=== PATIENT | male | born 1960 | race American Indian/Alaskan Native ===

== ENCOUNTER 2017-02-11 01:06 | Inpatient (IN) | payer OTHER ==
[2017-02-11] MEDS ORDERED: NITROSTAT SL PRN (01:37)
[2017-02-11] MEDS ORDERED: ASPIRIN PO ONE (01:38)
[2017-02-11] MEDS ORDERED: NITROSTAT SL ONE (01:42)
[2017-02-11 01:49] LABS: Basophils % (Auto) 0.3 % (0.0-1.8); Eosinophils % (Auto) 0.8 % (0.0-4.3); Hemoglobin 13.8 gm/dl (11.8-15.2); Mean Corpuscular HGB Conc 33 % (32-34); Mean Corpuscular Hemoglobin 26 pg (28-32); Mean Corpuscular Volume 80 fl (84-94); Platelet Count 243 K/mm3 (140-440); Red Blood Count 5.25 M/mm3 (3.65-5.03); Red Cell Distribution Width 18.6 % (13.2-15.2); White Blood Count 11.8 K/mm3 (4.5-11.0)
[2017-02-11 02:08] LABS: Anion Gap 17 mmol/L; BUN/Creatinine Ratio 13; Blood Urea Nitrogen 18 mg/dL (9-20); Calcium 8.9 mg/dL (8.4-10.2); Carbon Dioxide 28 mmol/L (22-30); Chloride 98.4 mmol/L (98-107); Glucose 179 mg/dL (75-100); Potassium 4.5 mmol/L (3.6-5.0); Sodium 139 mmol/L (137-145)
[2017-02-11] MEDS ORDERED: NACL 0.9% 1000 ML 1,000 ML IV ONE (02:38)
--- NOTE | 2017-02-11 02:56 | XRay Report ---
FINAL REPORT PROCEDURE: XR CHEST 1V AP TECHNIQUE: Chest radiograph anteroposterior view. CPT 03990 HISTORY: chest pain COMPARISON: No prior studies are available for comparison. FINDINGS: Heart: The heart is borderline enlarged. Mediastinum/Vessels: Normal. Lungs/Pleural space: Lungs are clear and expanded. There are no infiltrates, effusions or pneumothoraces per. Bony thorax: No acute osseous abnormality. Life support devices: None. IMPRESSION: There is borderline cardiomegaly. There are no infiltrates..
--- NOTE | 2017-02-11 02:57 | Emergency Department Report ---
ED Chest Pain HPI - General Chief Complaint: Chest Pain Stated Complaint: CP Time Seen by Provider: 02/11/17 02:33 Source: patient Mode of arrival: Stretcher Limitations: No Limitations - History of Present Illness Initial Comments: 56 YO MALE WITH H/O CHF, RLE DVT ,HTN, HER WITH C/O CHEST PAIN THAT BEGAN 6 HRS AGO. THE PAIN IS INTERMITTENT ACCOMPAINED BY NAUSEA. IT IS STABBING IN NATURE AND DOES NOT RADIATE. MD Complaint: chest pain -: hour(s) (6) Onset: during rest Severity scale (0 -10): 2 Quality: sharp Consistency: intermittent Improves With: nothing Worsens With: nothing re: nausea Treatments Prior to Arrival: none - Related Data Home Medications Medication Instructions Recorded Confirmed Last Taken Metoprolol [Lopressor TAB] 25 mg PO BID 02/11/17 02/11/17 Unknown Torsemide [Demadex] 20 mg PO BID 02/11/17 02/11/17 Unknown Warfarin [Coumadin] 7.5 mg PO DAILY@1700 02/11/17 02/11/17 Unknown Previous Rx's Medication Instructions Recorded Last Taken Type Folic Acid [Folvite] 1 mg PO DAILY #30 tablet 09/22/16 Unknown Rx Potassium Chloride [K-Dur] 20 meq PO BID #30 tablet 09/22/16 Unknown Rx Allergies Allergy/AdvReac Type Severity Reaction Status Date / Time No Known Allergies Allergy Unverified 09/12/16 09:03 Heart Score - HEART Score History: Moderately suspicious EKG: Non-specific Age: 45-65 Risk factors: > 3 risk factors or hx of atherosclerotic disease Troponin: < normal limit HEART Score: 5 ED Review of Systems ROS: Stated complaint: CP Other details as noted in HPI Constitutional: denies: chills, fever Eyes: denies: eye pain, eye discharge, vision change ENT: denies: ear pain, throat pain Respiratory: shortness of breath. denies: cough, wheezing Cardiovascular: chest pain. denies: palpitations Endocrine: no symptoms reported Gastrointestinal: nausea. denies: abdominal pain, diarrhea Genitourinary: denies: urgency, dysuria Musculoskeletal: denies: back pain, joint swelling, arthralgia Skin: denies: rash, lesions Neurological: denies: headache, weakness, paresthesias Psychiatric: denies: anxiety, depression Hematological/Lymphatic: denies: easy bleeding, easy bruising ED Past Medical Hx - Past Medical History Previous Medical History?: Yes Hx Hypertension: Yes Hx Heart Attack/AMI: Yes Hx Congestive Heart Failure: Yes Hx Diabetes: No Hx Deep Vein Thrombosis: Yes Hx Asthma: No Hx COPD: No - Surgical History Past Surgical History?: No - Social History Smoking Status: Current Every Day Smoker Substance Use Type: None - Medications Home Medications: Home Medications Medication Instructions Recorded Confirmed Last Taken Type Folic Acid [Folvite] 1 mg PO DAILY #30 tablet 09/22/16 02/11/17 Unknown Rx Potassium Chloride [K-Dur] 20 meq PO BID #30 tablet 09/22/16 02/11/17 Unknown Rx Metoprolol [Lopressor TAB] 25 mg PO BID 02/11/17 02/11/17 Unknown History Torsemide [Demadex] 20 mg PO BID 02/11/17 02/11/17 Unknown History Warfarin [Coumadin] 7.5 mg PO DAILY@1700 02/11/17 02/11/17 Unknown History ED Physical Exam - General Limitations: No Limitations General appearance: alert, in no apparent distress - Head Head exam: Present: atraumatic, normocephalic - Eye Eye exam: Present: normal appearance, EOMI - ENT ENT exam: Present: mucous membranes moist - Neck Neck exam: Present: normal inspection - Respiratory Respiratory exam: Present: normal lung sounds bilaterally. Absent: respiratory distress - Cardiovascular Cardiovascular Exam: Present: regular rate, normal rhythm, systolic murmur. Absent: diastolic murmur, rubs, gallop - GI/Abdominal GI/Abdominal exam: Present: soft, normal bowel sounds - Rectal Rectal exam: Present: deferred - Extremities Exam Extremities exam: Present: normal inspection, pedal edema (4+ PITTING EDEMA) - Back Exam Back exam: Present: normal inspection, full ROM - Neurological Exam Neurological exam: Present: alert, oriented X3, CN II-XII intact - Psychiatric Psychiatric exam: Present: normal affect, normal mood - Skin Skin exam: Present: warm, dry, intact, normal color. Absent: rash ED Course Vital Signs 02/11/17 02/11/17 01:12 02:00 Temperature 97.7 F Pulse Rate 68 Respiratory 16 16 Rate Blood Pressure 115/81 Blood Pressure 115/81 [Right] O2 Sat by Pulse 100 100 Oximetry MARY score - Mary Score Age > 65: (0) No Aspirin use within the Past 7 Days: (1) Yes 3 or more CAD Risk Factors: (1) Yes 2 or more Angina events in past 24 hrs: (1) Yes Known CAD with more than 50% Stenosis: (0) No Elevated Cardiac Markers: (1) Yes ST Deviation Greater than 0.5mm: (1) Yes MARY Score: 5 ED Medical Decision Making - Lab Data Result diagrams: 02/11/17 01:31 02/11/17 01:31 - EKG Data -: EKG Interpreted by Me - EKG Data Interpretation: other (HR 67, ATRIAL FLUTTER, NORMAL AXIS,LOW VOLTAHE IN LIMB LEADS) 02/11/17 05:55 EKG#2:HR 71, NON, NO LONGER A-FIB SPECIFIC T WAVE CHANGES - Radiology Data Radiology results: report reviewed (CXR: BORDERLINE CARDIOMEGALY) Critical care attestation.: If time is entered above; I have spent that time in minutes in the direct care of this critically ill patient, excluding procedure time. ED Disposition Clinical Impression: Chest pain CHF (congestive heart failure) Qualifiers: Congestive heart failure type: unspecified congestive heart failure type Congestive heart failure chronicity: acute Qualified Code(s): I50.9 - Heart failure, unspecified Disposition: DC-09 OP ADMIT IP TO THIS HOSP Is pt being admited?: Yes Does the pt Need Aspirin: No Condition: Serious Instructions: Chest Pain (ED) Referrals: CAMERON PARKER MD [Primary Care Provider] - 3-5 Days Time of Disposition: 06:03 (DR HOUSER PAGES AND CASE REVIEWED AND SHE WILL ADMIT HIM TO HER SERVICE)
[2017-02-11 04:02] LABS: Creatine Kinase MB 2.9 ng/mL (0.0-4.0)
[2017-02-11 04:03] LABS: Creatine Kinase 195 units/L (55-170)
--- NOTE | 2017-02-11 05:52 | Cat Scan Report ---
FINAL REPORT PROCEDURE: CT ANGIO CHEST TECHNIQUE: Computerized axial tomographic angiography of the chest and pulmonary arteries was performed after the IV injection of iodinated nonionic contrast. The image data was postprocessed using maximum intensity projection (MIP) and 2-dimensional multiplanar reformatted (MPR) techniques. The examination is specifically tailored to the evaluation of the pulmonary arteries per clinical request. HISTORY: Short of breath 786.09, chest pain 786.50, CHEST PAIN,H/O DVT COMPARISON: No prior studies are available for comparison. FINDINGS: Heart and pericardium: Normal. Thoracic aorta: Normal. Pulmonary vasculature: Normal. No pulmonary emboli. Lymph nodes: There are nonenlarged calcified mediastinal and hilar lymph nodes suggesting old granulomatous or fungal infection.. Lungs: There are fibrotic lung changes. There are no active infiltrates.. Pleural space: There is no pleural effusion or pneumothorax.. Musculoskeletal structures: No significant abnormality. Upper abdominal structures: Images of the upper abdomen demonstrate liver and kidney cysts.. IMPRESSION: There is no pulmonary embolism. There is no thoracic aortic aneurysm or dissection.. There are nonenlarged calcified mediastinal and hilar lymph nodes suggesting old granulomatous or fungal infection.. There are fibrotic lung changes. There are no active infiltrates.. There is no pleural effusion or pneumothorax..
[2017-02-11 08:12] LABS: INR 1.75 (0.87-1.13)
--- NOTE | 2017-02-11 09:09 | History and Physical Report ---
History of Present Illness Date of examination: 02/11/17 Date of admission: 02/11/17 07:29 Chief complaint: Chest pain History of present illness: 56-year-old -Nepalese male with past medical history significant for chronic combined systolic and diastolic CHF, atrial thrombus, DVT, morbid obesity presented to the emergency department was complaints of mid-strenal chest pain that started 2 days ago. pressure like, 6/10 in intensity, with no radiation, associated with SOB, diaphoresis. No alleviating, relieving factors. Patient has also light headedness. No fever or chills. On his previous admission EF 10-15%. REVIEW OF SYSTEMS: GENERAL: no weight change, no fatigue, no fever HEAD: no head ache EYES: no blurry vision, no acute visual loss EARS: no hearing loss, no discharge, no earache NOSE: no stuffiness, no sneezing, no discharge MOUTH, THROAT AND NECK: no bleeding gums, no sore throat, no swollen neck CARDIAC: as stated in HPI. RESPIRATORY: + shortness of breath, no wheeze, no cough, no sputum, no hemoptysis, no asthma GI: no decreased appetite, no nausea, no vomiting, no dysphagia, no diarrhea, no constipation, no abdominal pain URINARY: no change in frequency, no urgency, no polyuria, no hematuria, no incontinence MUSCULOSKELETAL: no muscle weakness, no pain, no joint stiffness NEUROLOGIC: no loss of sensation/numbness, no tingling, no tremors, no weakness/ paralysis HEMATOLOGIC: no anemia, no easy bruising SKIN: no rashes ENDOCRINE: no heat/cold intolerance, no polyuria, no polydipsia, no thyroid problems, no diabetes PSYCHIATRIC: no anxiety, no depression, no suicidal ideations Past History Past Medical History: DVT, heart failure, liver disease Past Surgical History: No surgical history Social history: smoking (1 pack over 4 days), full code. denies: alcohol abuse , prescription drug abuse, IV drug use Family history: diabetes (mother), other (ESRD on hemodialysis, mother) Medications and Allergies Allergies Allergy/AdvReac Type Severity Reaction Status Date / Time No Known Allergies Allergy Unverified 09/12/16 09:03 Home Medications Medication Instructions Recorded Confirmed Last Taken Type Folic Acid [Folvite] 1 mg PO DAILY #30 tablet 09/22/16 02/11/17 Unknown Rx Potassium Chloride [K-Dur] 20 meq PO BID #30 tablet 09/22/16 02/11/17 Unknown Rx Metoprolol [Lopressor TAB] 25 mg PO BID 02/11/17 02/11/17 Unknown History Torsemide [Demadex] 20 mg PO BID 02/11/17 02/11/17 Unknown History Warfarin [Coumadin] 7.5 mg PO DAILY@1700 02/11/17 02/11/17 Unknown History Active Meds: Active Medications Folic Acid (Folvite) 1 mg PO DAILY CHARLES Metoprolol Tartrate (Lopressor) 25 mg PO BID CHARLES Nitroglycerin (Nitrostat) 0.4 mg SL .Q5MIN PRN PRN Reason: Chest Pain Potassium Chloride (K-Dur) 20 meq PO BID CHARLES Review of Systems All systems: negative Exam - Physical Exam Narrative exam: In mild cardiopulmonary distress. The patient is obese. Vital signs as documented. Head exam is unremarkable. No scleral icterus . Neck is without jugular venous distension, thyromegaly, or carotid bruits. Lungs are clear to auscultation. Cardiac exam reveals regular rate and Rhythm. Abdominal exam reveals normal bowel sounds, no masses, no organomegaly and no aortic enlargement. Extremities no pitting edema bilaterally. [employer]: Alert and oriented 3. No focal weakness. - Constitutional Vitals: Temp Pulse Resp BP Pulse Ox 98.2 F 69 21 106/70 98 02/11/17 08:00 02/11/17 08:00 02/11/17 08:00 02/11/17 08:00 02/11/17 08:00 Results - Labs CBC & Chem 7: 02/11/17 01:31 02/11/17 01:31 Labs: Laboratory Last Values WBC 11.8 K/mm3 (4.5-11.0) H 02/11/17 01:31 RBC 5.25 M/mm3 (3.65-5.03) H 02/11/17 01:31 Hgb 13.8 gm/dl (11.8-15.2) 02/11/17 01:31 Hct 42.0 % (35.5-45.6) 02/11/17 01:31 MCV 80 fl (84-94) L 02/11/17 01:31 MCH 26 pg (28-32) L 02/11/17 01:31 MCHC 33 % (32-34) 02/11/17 01:31 RDW 18.6 % (13.2-15.2) H 02/11/17 01:31 Plt Count 243 K/mm3 (140-440) 02/11/17 01:31 Lymph % (Auto) 21.7 % (13.4-35.0) 02/11/17 01:31 [place] % (Auto) 5.6 % (0.0-7.3) 02/11/17 01:31 Eos % (Auto) 0.8 % (0.0-4.3) 02/11/17 01:31 Baso % (Auto) 0.3 % (0.0-1.8) 02/11/17 01:31 Lymph # 2.6 K/mm3 (1.2-5.4) 02/11/17 01:31 [place] # 0.7 K/mm3 (0.0-0.8) 02/11/17 01:31 Eos # 0.1 K/mm3 (0.0-0.4) 02/11/17 01:31 Baso # 0.0 K/mm3 (0.0-0.1) 02/11/17 01:31 Seg Neutrophils % 71.6 % (40.0-70.0) H 02/11/17 01:31 Seg Neutrophils # 8.4 K/mm3 (1.8-7.7) H 02/11/17 01:31 PT 21.4 Sec. (12.2-14.9) H 02/11/17 03:25 INR 1.75 (0.87-1.13) H 02/11/17 03:25 D-Dimer 267.08 ng/mlDDU (0-234) H 02/11/17 03:25 Sodium 139 mmol/L (137-145) 02/11/17 01:31 Potassium 4.5 mmol/L (3.6-5.0) 02/11/17 01:31 Chloride 98.4 mmol/L (98-107) 02/11/17 01:31 Carbon Dioxide 28 mmol/L (22-30) 02/11/17 01:31 Anion Gap 17 mmol/L 02/11/17 01:31 BUN 18 mg/dL (9-20) 02/11/17 01:31 Creatinine 1.4 mg/dL (0.8-1.5) 02/11/17 01:31 Estimated GFR > 60 ml/min 02/11/17 01:31 BUN/Creatinine Ratio 13 % 02/11/17 01:31 Glucose 179 mg/dL (75-100) H 02/11/17 01:31 Calcium 8.9 mg/dL (8.4-10.2) 02/11/17 01:31 Total Creatine Kinase 195 units/L (55-170) H 02/11/17 03:25 CK-MB (CK-2) 2.9 ng/mL (0.0-4.0) 02/11/17 03:25 CK-MB (CK-2) Rel Index 1.4 (0-4) 02/11/17 03:25 Troponin T < 0.010 ng/mL (0.00-0.029) 02/11/17 04:26 NT-Pro-B Natriuret Pep 2479 pg/mL (0-900) H 02/11/17 04:26 - Imaging and Cardiology Chest x-ray: image reviewed (no infiltrates) CT scan - chest: report reviewed (no PE, or pleural effusion) Assessment and Plan Assessment and plan: Chest pain Acute on chronic combined CHF exacerbation History of cardiac thrombus History of DVT on anticoagulation Hypotension - Ejection fraction is 10-15%, diastolic dysfunction (management per cardiology) - Cardiology consult - Hold beta zack because of hypotension - Deferred to give IV diuresis because of hypotension - Continue appropriate home medications - INR is 1.75 continue warfarin DVT prophylaxis - Continue continue warfarin Disposition - Admit to telemetry floor Advance Directives: Yes VTE prophylaxis?: Chemical Plan of care discussed with patient/family: Yes
[2017-02-11] MEDS ORDERED: MORPHINE IV PRN (09:18)
[2017-02-11] MEDS ORDERED: LOPRESSOR PO SCH (10:00)
[2017-02-11] MEDS: FOLVITE PO SCH (11:05)
[2017-02-11] MEDS: K-DUR PO SCH ×2 (11:05→22:26)
--- NOTE | 2017-02-11 12:31 | Consultation ---
History of Present Illness Consult date: 02/11/17 Requesting physician: ERIBERTO THOMPSON Consult reason: chest pain History of present illness: This is a 56-year-old Afro-Liberian gentleman with morbid obesity has severe LV dysfunction with apical thrombus patient has been relatively compensated Nye heart classification 3. Patient came to the hospital having midsternal chest pressure nonradiating. [place] it might have been indigestion relieved partially with an acid. Patient denies any syncope or palpitations. Patient is able down flat. Patient states compliance with medication and diet. Patient is not an Bret or arb. Because of low blood pressure. Patient denies any melena fever or chills Past History Past Medical History: DVT, heart failure, liver disease Past Surgical History: No surgical history Social history: smoking (1 pack over 4 days), full code. denies: alcohol abuse , prescription drug abuse, IV drug use Family history: diabetes (mother), other (ESRD on hemodialysis, mother) Medications and Allergies Allergies Allergy/AdvReac Type Severity Reaction Status Date / Time No Known Allergies Allergy Unverified 09/12/16 09:03 Home Medications Medication Instructions Recorded Confirmed Last Taken Type Folic Acid [Folvite] 1 mg PO DAILY #30 tablet 09/22/16 02/11/17 Unknown Rx Potassium Chloride [K-Dur] 20 meq PO BID #30 tablet 09/22/16 02/11/17 Unknown Rx Metoprolol [Lopressor TAB] 25 mg PO BID 02/11/17 02/11/17 Unknown History Torsemide [Demadex] 20 mg PO BID 02/11/17 02/11/17 Unknown History Warfarin [Coumadin] 7.5 mg PO DAILY@1700 02/11/17 02/11/17 Unknown History Active Meds: Active Medications Folic Acid (Folvite) 1 mg PO DAILY [facility] Last Admin: 02/11/17 11:05 Dose: 1 mg Furosemide (Lasix) 40 mg IV QDAY [facility] Metoprolol Tartrate (Lopressor) 25 mg PO BID [facility] Morphine Sulfate (Morphine) 4 mg IV Q4H PRN PRN Reason: Pain , Severe (7-10) Nitroglycerin (Nitrostat) 0.4 mg SL .Q5MIN PRN PRN Reason: Chest Pain Pantoprazole Sodium (Protonix) 40 mg PO QDAY [facility] Potassium Chloride (K-Dur) 20 meq PO BID [facility] Last Admin: 02/11/17 11:05 Dose: 20 meq Warfarin Sodium (Coumadin) 7.5 mg PO DAILY@1700 [facility] PRN Reason: Protocol Review of Systems All systems: negative (hpi) Physical Examination Vital Signs Temp Pulse Resp BP Pulse Ox 97.7 F 68 16 115/81 100 02/11/17 01:12 02/11/17 01:12 02/11/17 01:12 02/11/17 01:12 02/11/17 01:12 HEENT: Positive: PERRL, EOMI Neck: Positive: neck supple Cardiac: Positive: Reg Rate and Rhythm Lungs: Positive: clear to auscultation Neuro: Positive: Grossly Intact Abdomen: Positive: Soft Male genitourinary: Positive: deferred Skin: Positive: Clear Extremities: Present: normal. Absent: edema Results 02/11/17 01:31 02/11/17 01:31 Cardiac Enzymes 02/11/17 Range/Units 03:25 CK-MB (CK-2) 2.9 (0.0-4.0) ng/mL Coagulation 02/11/17 Range/Units 03:25 PT 21.4 H (12.2-14.9) Sec. INR 1.75 H (0.87-1.13) CBC 02/11/17 Range/Units 01:31 WBC 11.8 H (4.5-11.0) K/mm3 RBC 5.25 H (3.65-5.03) M/mm3 Hgb 13.8 (11.8-15.2) gm/dl Hct 42.0 (35.5-45.6) % Plt Count 243 (140-440) K/mm3 Lymph # 2.6 (1.2-5.4) K/mm3 [place] # 0.7 (0.0-0.8) K/mm3 Eos # 0.1 (0.0-0.4) K/mm3 Baso # 0.0 (0.0-0.1) K/mm3 Comprehensive Metabolic Panel 02/11/17 Range/Units 01:31 Sodium 139 (137-145) mmol/L Potassium 4.5 (3.6-5.0) mmol/L Chloride 98.4 (98-107) mmol/L Carbon Dioxide 28 (22-30) mmol/L BUN 18 (9-20) mg/dL Creatinine 1.4 (0.8-1.5) mg/dL Glucose 179 H (75-100) mg/dL Calcium 8.9 (8.4-10.2) mg/dL - Imaging and Cardiology Echo: report reviewed (08/2016 severe bi ventricle dysfunction EF 10-50% with apical thrombus moderate to severe tricuspid regurgitation and moderate pulmonary hypertension mild mitral regurgitation and no aortic regurgitation) EKG interpretations - Telemetry EKG Rhythm: Sinus Rhythm (sinus rhythm nonspecific ST-T) Assessment and Plan Chest pain possible GI Acute on chronic systolic heart failure Morbid obesity Recommend IV Lasix try PPI for chest pain ischemic workup continue beta zack therapy
[2017-02-11] MEDS: LASIX IV SCH (12:42)
[2017-02-11] MEDS: LOPRESSOR PO SCH (12:42)
[2017-02-11] MEDS: PROTONIX PO SCH (12:42)
[2017-02-11] MEDS ORDERED: COUMADIN PO SCH (17:00)
[2017-02-12] MEDS: LOPRESSOR PO SCH ×2 (01:17→13:17)
[2017-02-12 07:14] LABS: INR 1.55 (0.87-1.13)
[2017-02-12 08:56] LABS: Alanine Aminotransferase 16 units/L (7-56); Albumin 3.1 g/dL (3.9-5); Albumin/Globulin Ratio 0.8 %; Alkaline Phosphatase 60 units/L (35-129); Anion Gap 17 mmol/L; BUN/Creatinine Ratio 13; Blood Urea Nitrogen 16 mg/dL (9-20); Calcium 8.7 mg/dL (8.4-10.2); Carbon Dioxide 26 mmol/L (22-30); Chloride 101.6 mmol/L (98-107); Glucose 122 mg/dL (75-100); Potassium 3.7 mmol/L (3.6-5.0); Sodium 141 mmol/L (137-145); Total Protein 6.9 g/dL (6.3-8.2)
[2017-02-12] MEDS ORDERED: LEXISCAN IV ONE ×2 (09:15→09:36)
--- NOTE | 2017-02-12 10:14 | Progress Note ---
Assessment and Plan Chest pain possible GI Acute on chronic systolic heart failure Morbid obesity rec; change to home meds, stress test large incarnation apical, anterior apical mid anterior ef 32% akinesis no signficant ischemia reverislbe noted, if negative, cont ppi and followup in clinic cardiology next week. Subjective Date of service: 02/12/17 Principal diagnosis: chest pain Interval history: pt chest pain is getting better Objective Vital Signs Temp Pulse Resp BP BP Pulse Ox 02/12/17 07:55 70 99 02/12/17 07:54 98.4 F 70 18 100/74 98 02/12/17 03:48 98.7 F 73 20 85/55 94 02/12/17 01:18 20 02/12/17 01:17 73 98/71 02/12/17 00:22 98.8 F 73 20 98/71 99 02/11/17 21:46 71 02/11/17 20:47 99.5 F 71 20 86/58 99 02/11/17 16:45 98.7 F 73 20 88/56 100 02/11/17 16:37 98.5 F 71 20 92/58 93 02/11/17 16:30 70 02/11/17 15:33 98.7 F 72 20 88/56 99 02/11/17 12:15 97.4 F L 178 H 20 106/63 100 02/11/17 11:27 98 02/11/17 11:15 97.4 F L 78 20 106/63 98 - Physical Examination HEENT: Positive: PERRL, EOMI Neck: Positive: neck supple Cardiac: Positive: Reg Rate and Rhythm Lungs: Positive: clear to auscultation Neuro: Positive: Grossly Intact Abdomen: Positive: Soft Skin: Positive: Clear Extremities: Present: normal. Absent: edema - Labs and Meds Cardiac Enzymes 02/12/17 Range/Units 08:20 AST 15 (5-40) units/L Coagulation 02/12/17 Range/Units 04:42 PT 19.5 H (12.2-14.9) Sec. INR 1.55 H (0.87-1.13) Comprehensive Metabolic Panel 02/12/17 Range/Units 08:20 Sodium 141 (137-145) mmol/L Potassium 3.7 (3.6-5.0) mmol/L Chloride 101.6 (98-107) mmol/L Carbon Dioxide 26 (22-30) mmol/L BUN 16 (9-20) mg/dL Creatinine 1.2 (0.8-1.5) mg/dL Glucose 122 H (75-100) mg/dL Calcium 8.7 (8.4-10.2) mg/dL AST 15 (5-40) units/L ALT 16 (7-56) units/L Alkaline Phosphatase 60 (35-129) units/L Total Protein 6.9 (6.3-8.2) g/dL Albumin 3.1 L (3.9-5) g/dL - Imaging and Cardiology Pharmacologic stress test: report reviewed (large infarcation apical, anterior apical mid anterior ef 32% akinesis no signficant ischemia reverislbe noted) Echo: report reviewed (08/2016 severe bi ventricle dysfunction EF 10-50% with apical thrombus moderate to severe tricuspid regurgitation and moderate pulmonary hypertension mild mitral regurgitation and no aortic regurgitation) - Telemetry EKG Rhythm: Sinus Rhythm (no afib occasional vpc)
--- NOTE | 2017-02-12 12:11 | Discharge Summary ---
Providers - Providers Date of Admission: 02/11/17 07:29 Attending physician: ROSIBEL PIÑA MD 02/11/17 07:29 Consult to Physician [CONS] Routine Consulting Provider: SARIKA BOWIE Reason For Exam: chest pain, CHF Place consult to:: cardiology Notified:: Claudia Phone number called:: on unit Was contact made?: Yes Time called:: 10:21 Primary care physician: CAMERON PARKER Hospitalization Reason for admission: chest pain Condition: Serious Hospital course: 56-year-old -[place] male with past medical history significant for chronic combined systolic and diastolic CHF, atrial thrombus, DVT, morbid obesity presented to the emergency department was complaints of mid-strenal chest pain that started 2 days ago. pressure like, 6/10 in intensity, with no radiation, associated with SOB, diaphoresis. No alleviating, relieving factors. Patient has also light headedness. No fever or chills. On his previous admission EF 10-15%. Patient initially underwent a stress test which was unremarkable. Cardiology did see the patient with notation that patient does large incarnation apical, anterior apical mid anterior ef 32% akinesis no signficant ischemia reverislbe noted, if negative, cont ppi and followup in clinic cardiology next week. We did discuss possible bridge therapy for subtherapeutic INR and this was not required at this time. Education was provided to the patient he is clinically stable and improved he understands his ejection fraction was 10-15% of the risk associated. He will follow up with cardiology outpatient. I do recommend that the patient. Primary care physician for management of GERD patient may benefit from endoscopy at a later time. Chest pain likely secondary to GERD Acute on chronic systolic heart failure Morbid obesity Hypercoagulable state Acute on chronic combined CHF exacerbation History of cardiac thrombus History of DVT on anticoagulation Hypotension Disposition: DC-01 TO HOME OR SELFCARE Time spent for discharge: 35 mins Core Measure Documentation - Palliative Care Palliative Care/ Comfort Measures: Not Applicable - Core Measures Any of the following diagnoses?: none - VTE Discharge Requirements Deep Vein Thrombosis/Pulmonary Embolism Present on Admission: No Exam - Physical Exam Narrative exam: VITAL SIGNS: Reviewed. GENERAL: The patient appeared well nourished and normally developed. Vital signs as documented. HEAD: No signs of head trauma. EYES: Pupils are equal. Extraocular motions intact. EARS: Hearing grossly intact. MOUTH: Oropharynx is normal. NECK: No adenopathy, no JVD. CHEST: Chest with clear breath sounds bilaterally. No wheezes, rales, or rhonchi. CARDIAC: Regular rate and rhythm. S1 and S2, without murmurs, gallops, or rubs. VASCULAR: No Edema. Peripheral pulses normal and equal in all extremities. ABDOMEN: Soft, without detectable tenderness. No sign of distention. No rebound or guarding, and no masses palpated. Bowel Sounds normal. MUSCULOSKELETAL: Good range of motion of all major joints. Extremities without clubbing, cyanosis or edema. NEUROLOGIC EXAM: Alert and oriented x 3. No focal sensory or strength deficits. Speech normal. Follows commands. PSYCHIATRIC: Mood normal. SKIN: No rash or lesions. - Constitutional Vitals: Temp Pulse Resp BP Pulse Ox 98.4 F 70 18 100/74 99 02/12/17 07:54 02/12/17 07:55 02/12/17 07:54 02/12/17 07:54 02/12/17 07:55 Plan Activity: advance as tolerated, fall precautions Diet: low cholesterol Special Instructions: record daily BP diary Follow up with: CAMERON PARKER MD [Primary Care Provider] - 3-5 Days JOSE TURNER MD [Staff Physician] - 14 Days Forms: Warfarin Discharge Instruction Prescriptions: Pantoprazole [Protonix TAB] 40 mg PO QDAY #30 tablet
[2017-02-12] MEDS: K-DUR PO SCH (13:12)
[2017-02-12] MEDS: PROTONIX PO SCH (13:12)
[2017-02-12] MEDS: FOLVITE PO SCH (13:12)
[2017-02-12] MEDS: LASIX IV SCH (13:13)
[2017-02-12 13:18] VITALS: BP 116/80
[2017-02-12] MEDS ORDERED: COUMADIN ONE (13:34)
[2017-02-12] MEDS ORDERED: COUMADIN PO SCH (17:00)
--- NOTE | 2017-02-12 22:40 | Treadmill Report ---
NUCLEAR PERFUSION STUDY CLINICAL INFORMATION: The patient has a history of cardiomyopathy with apical thrombus, recurrent chest pain, is here for a nuclear perfusion study. IMAGING PROTOCOL: The patient received 10 mCi of Technetium 99m Tetrofosmin for resting image and 28 mCi of Technetium 99m Tetrofosmin for stress imaging. The imaging for the whole procedure was completed 30-90 minutes following the initial injection of Technetium 99m tetrofosmin. The SPECT imaging in the 180 degree arc was performed in the right anterior oblique projection. Computerized reconstruction of the images was performed for analysis. IMAGING RESULTS: Cavity is dilated on both stress and rest. Distribution of radionuclide is normal in the inferior, septal, lateral, but large infarction of the apical inferoapical, anteroapical, basal anterior wall appears to be mildly perfusing but the mid anterior and anteroapical large area infarction with large area of territory noted. Gated SPECT, EF 32% with akinesis of the apical anterior, apical mid anterior region. The patient infused Lexiscan with no EKG changes. SUMMARY: 1. Negative Lexiscan EKG. 2. No significant stress induced ischemia. 3. There is a large area of infarction of the apical and inferoapical anteroapical mid anterior region with akinesis in that territory. Gated SPECT, EF 32% with normal perfusion in the inferior, septal, lateral, and basal inferior region. JOB# [id number] BRETT/HAROLDO
== END 2017-02-12 14:15 | disposition home or self-care (01) | DRG 293 ==
LOC: ED 01:06 → 4A 07:29
PROVIDERS: ADMIT Internal Medicine; ATTEND Internal Medicine
DX: I50.43 Acute on chronic combined systolic (congestive) and diastolic (congestive) heart failure (principal); D69.6 Thrombocytopenia, unspecified; R07.89 Other chest pain; E66.01 Morbid (severe) obesity due to excess calories; Z68.39 Body mass index [BMI] 39.0-39.9, adult; Z84.1 Family history of disorders of kidney and ureter; Z83.3 Family history of diabetes mellitus; Z86.718 Personal history of other venous thrombosis and embolism; Z79.01 Long term (current) use of anticoagulants; I25.2 Old myocardial infarction
CPT/HCPCS: 36415; 71010; 71275; 78452; 80048; 80053; 82550; 82553; 83735; 83880; 84484; 85025; 85379; 85610; 93005; 93010; 93017; 96360; 96361; 99406; A9502; J1940; J2785; J7030; Q9967